=== PATIENT | male | born 1955 | race Two or more races ===

== ENCOUNTER 2017-09-22 09:16 | Inpatient (IN) | payer SELFPAY ==
--- NOTE | 2017-09-22 09:34 | CPEKG ---
Heart Rate: 57 RR Interval: 1053 P-R Interval: 204 QRSD Interval: 86 QT Interval: 436 QTC Interval: 425 P [place]: -8 QRS [place]: 20 T Wave [place]: 68 EKG Severity - ABNORMAL ECG - EKG Impression: SINUS RHYTHM EKG Impression: ABNRM R PROG, CONSIDER ASMI OR LEAD PLACEMENT Electronically Signed By: Obi Grant 22-Sep-2017 09:42:00
--- NOTE | 2017-09-22 09:41 | EDPHY ---
H & P Stated Complaint: Chest pain Time Seen by Provider: 09/22/17 09:25 HPI/ROS: CHIEF COMPLAINT: Chest pain HISTORY OF PRESENT ILLNESS: The patient presents the ED with intermittent nonexertional chest pain over the past 2 days. The patient does have a history of reported peripheral vascular disease. The patient also has a history of aortic valve replacement. The patient is on Plavix. He denies any pleuritic chest pain currently. He denies asymmetric calf pain or swelling. The patient denies history of coronary artery disease. He believes he had an unremarkable stress test performed within the past year. Patient denies any fever, cough or congestion. The patient denies any additional acute complaints. REVIEW OF SYSTEMS: A comprehensive 10 point review of systems is otherwise negative aside from elements mentioned in the history of present illness. Source: Patient Exam Limitations: No limitations - Personal History Current Tetanus/Diphtheria Vaccine: Unsure Current Tetanus Diphtheria and Acellular Pertussis (TDAP): Unsure - Medical/Surgical History Hx Asthma: No Hx Chronic Respiratory Disease: No Hx Diabetes: Yes Hx Cardiac Disease: Yes Hx Renal Disease: No Hx Cirrhosis: No Hx Alcoholism: No Hx HIV/AIDS: No Hx Splenectomy or Spleen Trauma: No Other PMH: AVR, HTN, DM - Social History Smoking Status: Former smoker - Physical Exam Exam: General Appearance: Alert, no distress Eyes: Pupils equal and round no pallor or injection ENT, Mouth: Mucous membranes moist Respiratory: There are no retractions, lungs are clear to auscultation Cardiovascular: Regular rate and rhythm Gastrointestinal: Abdomen is soft and nontender, no masses, bowel sounds normal Neurological: 5/5 strength all 4 extremities Skin: Warm and dry, no rashes Musculoskeletal: Neck is supple nontender Extremities: symmetrical, full range of motion Constitutional: Initial Vital Signs Temperature (C) 36.4 C 09/22/17 09:21 Heart Rate 60 09/22/17 09:21 Respiratory Rate 16 09/22/17 09:21 Blood Pressure 152/92 H 09/22/17 09:21 O2 Sat (%) 95 09/22/17 09:21 O2 Delivery Mode Room Air Allergies/Adverse Reactions: No Known Allergies Allergy (Unverified 09/22/17 09:20) Home Medications: Medication Instructions Recorded Amlodipine Besylate 09/22/17 Jardiance 09/22/17 Lisinopril-Hctz 10-12.5 mg Tab 09/22/17 Metformin HCl 09/22/17 Plavix 09/22/17 Tamsulosin HCl 09/22/17 Medical Decision Making - Diagnostics EKG Interpretation: EKG: Complete interpretation has been separately recorded in the [facility] archive. Summary impression: Sinus rhythm, rate 57, no ST segment elevation or depression noted Imaging Results: Imaging Impressions Chest X-Ray 09/22/17 09:39 Impression: Nothing acute identified. ED Course/Re-evaluation: The patient presents to the ED for evaluation of chest pain which has been present for the past several days. It is nonexertional. The patient has no prior history of coronary artery disease but does have an aortic valve replacement. Patient does have peripheral vascular disease and takes Plavix. He does experience intermittent claudication. The patient's initial workup demonstrated a normal troponin and nonischemic EKG. The patient did undergo an attempted treadmill stress test however was stopped secondary to leg pain. The patient was seen by Cardiology. He is currently undergoing a Lexiscan for further evaluation of his chest pain. Patient's Lexiscan demonstrates indeterminate uptake. Cardiology recommends admission to the hospital for resting image to be obtained in the morning. Consultation is made with Dr. Ricks from the hospitalist service who will admit the patient. Differential Diagnosis: Differential diagnosis considered includes acute coronary syndrome, pericarditis , herpes zoster, myocardial infarction - Data Points Laboratory Results: Laboratory Results 09/22/17 09:40 09/22/17 09:40 09/22/17 09/22/17 09/22/17 09:45 09:40 09:40 WBC 5.72 10^3/uL 10^3/uL (3.80-9.50) RBC 5.30 10^6/uL 10^6/uL (4.40-6.38) Hgb 15.5 g/dL g/dL (13.7-17.5) Hct 47.2 % % (40.0-51.0) MCV 89.1 fL fL (81.5-99.8) MCH 29.2 pg pg (27.9-34.1) MCHC 32.8 g/dL g/dL (32.4-36.7) RDW 13.6 % % (11.5-15.2) Plt Count 210 10^3/uL 10^3/uL (150-400) MPV 9.2 fL fL (8.7-11.7) Neut % (Auto) 47.5 % % (39.3-74.2) Lymph % (Auto) 37.2 % % (15.0-45.0) [place] % (Auto) 12.2 % % (4.5-13.0) Eos % (Auto) 2.4 % % (0.6-7.6) Baso % (Auto) 0.5 % % (0.3-1.7) Nucleat RBC Rel Count 0.0 % % (0.0-0.2) Absolute Neuts (auto) 2.71 10^3/uL 10^3/uL (1.70-6.50) Absolute Lymphs (auto) 2.13 10^3/uL 10^3/uL (1.00-3.00) Absolute Monos (auto) 0.70 10^3/uL 10^3/uL (0.30-0.80) Absolute Eos (auto) 0.14 10^3/uL 10^3/uL (0.03-0.40) Absolute Basos (auto) 0.03 10^3/uL 10^3/uL (0.02-0.10) Absolute Nucleated RBC 0.00 10^3/uL 10^3/uL (0-0.01) Immature Gran % 0.2 % % (0.0-1.1) Immature Gran # 0.01 10^3/uL 10^3/uL (0.00-0.10) Sodium 138 mEq/L mEq/L (135-145) Potassium 4.0 mEq/L mEq/L (3.3-5.0) Chloride 106 mEq/L mEq/L (97-110) Carbon Dioxide 25 mEq/l mEq/l (22-31) Anion Gap 7 mEq/L L mEq/L (8-16) BUN 13 mg/dL mg/dL (7-23) Creatinine 0.8 mg/dL mg/dL (0.7-1.3) Estimated GFR > 60 Glucose 78 mg/dL mg/dL (70-100) Calcium 9.1 mg/dL mg/dL (8.5-10.4) POC Troponin I 0.01 ng/mL ng/mL (0.00-0.08) NT-Pro-B Natriuret Pep 58 pg/mL pg/mL (0-125) Point of Care Test Results: Chemistry 09/22/17 09:45 POC Troponin I 0.01 ng/mL ng/mL (0.00-0.08) Departure - Departure Disposition: [facility] Inpatient Acute Clinical Impression: Chest pain Condition: Good Referrals: MARK GUEVARA [Other] - As per Instructions
[2017-09-22 09:51] LABS: PLATELET COUNT 210 10^3/uL (150-400)
[2017-09-22] MEDS ORDERED: REGADENOSON 0.4 MG/5 ML SYR IVP ONE (11:31)
--- NOTE | 2017-09-22 11:59 | CPIP ---
[f rep st] INVASIVE CARDIAC PROCEDURE PROCEDURE: Exercise stress test. INDICATION: Chest pain. DESCRIPTION: The patient was on the Dion protocol for an exercise tolerance test. At 3 minutes and 20 seconds, he jumped off the belt and stopped exercising. He said he felt short of breath, and he had some cramping in his legs. He had no chest pain, jaw pain, arm pain, chest tightness. He was getting significantly short of breath throughout the 1st stage of the Dion protocol. He did not reach 85% of maximum predicted heart rate. His baseline EKG had nonspecific ST-T changes and had no diagnostic changes with exercise. He had no atrial or ventricular arrhythmias with exercise or p ostexercise. CONCLUSIONS: 1. This is a negative exercise tolerance test for EKG or clinical evidence of ischemia at a very poo r workload. 2. The test is inconclusive, as the patient failed to reach 85% of maximum predicted heart rate. 3. It was a very short duration of exercise, which also contributes to it being inconclusive. 4. Lexiscan for a pharmacologic nuclear stress test has been ordered. COMPLICATIONS: None. Results discussed with the emergency room physician. /[id number]/MODL
--- NOTE | 2017-09-22 12:05 | CPIP ---
[f rep st] INVASIVE CARDIAC PROCEDURE INDICATION: The patient has been a patient in our emergency room being evaluated for chest pain synd [place]. He has multiple significant risk factors for coronary artery disease. Earlier, we did a regul ar exercise tolerance test with a Dion protocol, and that was inconclusive because of failure to zenon ch 85% of maximum predicted heart rate, and further because of very short exercise tolerance. We therefore elected to do a pharmacologic nuclear study, and the patient agreed to this. The patient had a pharmacologic nuclear stress test, and he received the medications and isotope with out any complications. He had no chest pain, jaw pain. He did not feel lightheaded, dizzy. His baseline EKG was abnormal with nonspecific ST-T changes, and he had no diagnostic EKG changes wit h the Lexiscan. He had no arrhythmias with this study. The patient is going down now for stress imaging. CONCLUSION: 1. Negative pharmacologic nuclear study for EKG changes or arrhythmias with the injection of the med ication. 2. Stress images are pending. 3. Nuclear Medicine says that they are not able to do his resting images today, and I have discussed with the patient what that means. If he has an abnormal stress imaging study or if Radiology believ es he should have a resting image, I have told him that he will need to wait in the hospital overnigh t to get those images obtained. I have also explained to him that he does have a right to sign out a gainst medical advice, and then we would try to arrange for him to get the resting images tomorrow; h owever, that can be complicated because by then, he is an outpatient. We will cross that bridge when we come to it. Also, I have told him that he needs to pay attention to his pain and his clinical sy ndrome because even if our test is normal and the emergency room discharges him, if he continues to h ave significant discomfort; persistent discomfort; new discomfort; or associated symptoms, such as sh ortness of breath, fatigue, hemoptysis; he needs to return to any emergency room for further evaluati on, and not just assume that his clinical situation has resolved. He understands all of this, and his questions have been answered. There were no complications. He is now heading down to Nuclear Imaging. /[id number]/MODL
--- NOTE | 2017-09-22 13:39 | ASMTLACE ---
LACE Length of stay for Answers: Less than 1 day current admission Acuity / Level of Answers: No Care: Did the patient have an inpatient admission? # of Emergency department Answers: 1-2 visits in the last 6 months Score: 1 Date Signed: 09/22/2017 01:38 PM Electronically Signed By:Austin Dickerson LCSW
[2017-09-22] MEDS ORDERED: ACETAMINOPHEN 325 MG TAB PO PRN (16:08)
[2017-09-22] MEDS ORDERED: D50W 25 GM/50 ML SYR IVP PRN (16:14)
--- NOTE | 2017-09-22 16:37 | GHP ---
[f rep st] HISTORY AND PHYSICAL DATE OF ADMISSION: 09/22/2017 CHIEF COMPLAINT: Chest pain. HISTORY OF PRESENT ILLNESS: This is a 62-year-old man presenting from [place] who presents with chest pain. It started yesterday. Described as a tightness, intermittent, not associated with exerc ise, not really relieved by anything. He has done nothing for it. He has a history of peripheral va scular disease, as well as an aortic valve replacement, but no known coronary artery disease. He pre sented to the emergency department this morning. Attempt was made at a treadmill stress test; melissa rivero, he failed that due to only being able to go for 3 minutes due to claudication. He had a Lexiscan that ordered. Stress images were indeterminate. He is thus admitted for his resting images. PAST MEDICAL/SURGICAL HISTORY: 1. Peripheral vascular disease. Has not received any stents. 2. 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 During anatoly t, he had 2 CVAs. 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 3. Diabetes mellitus. 4. Hypertension. 5. BPH. MEDICATIONS: Please see medication reconciliation. ALLERGIES: No known drug allergies. FAMILY HISTORY: Reviewed, noncontributory. SOCIAL HISTORY: He is currently visiting from [place]. He occasionally smokes a cigar. He does not smoke cigarettes and does not drink. REVIEW OF SYSTEMS: A 10-point review of systems is conducted and is negative, except per HPI. PHYSICAL EXAMINATION: VITAL SIGNS: Blood pressure 158/105, heart rate 57, respiration rate 18, satu rating at 99% on room air, temperature is 36.7. GENERAL: The patient is a pleasant man who is sitti ng comfortably in no acute distress. HEENT: Normocephalic, atraumatic. CARDIOVASCULAR: Regular ra te and rhythm. He has a 2/6 systolic murmur, crescendo-decrescendo heard best at the right upper mary rnal border. PULMONARY: Lungs clear to auscultation bilaterally. ABDOMEN: Obese, but otherwise so ft, nontender, nondistended. SKIN: No rash. : No Doyle. NEUROLOGIC: Alert and oriented x3. H e is moving all extremities. PSYCHIATRIC: Normal mood and affect. LABORATORY DATA: CBC is normal. Basic metabolic panel is normal. Troponin 0.01. BNP is 58. DATA: 1. Discussed this with Dr. Grant. Will admit to med/surg. 2. I personally viewed and interpreted his ECG. This shows sinus rhythm. He has slow R-wave progre ssion. 3. I personally viewed and interpreted his chest x-ray. This shows normal-sized heart. He has ster notomy wires. There is nothing acute. IMPRESSION/PLAN: 1. Chest pain: His HEART score is 4 for age, moderately suspicious history, and multiple risk facto rs. He failed an exercise stress test due to claudication. He had indeterminate stress images, thus he is admitted for resting images. These will be performed tomorrow. Further workup pending these results. 2. Peripheral vascular disease: He is currently on an aspirin. He is not taking a statin medicatio n. Would defer that to his primary care doctor. 3. 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 He is on P lavix. 4. Cerebrovascular accident x2. He is on Plavix as above. It sounds as though this was embolic in the setting of his endocarditis. 5. Diabetes mellitus: We will hold his oral medications. We will follow his blood sugars and put h im on a low-dose sliding scale insulin. 6. Hypertension: Continue his antihypertensives. 7. BPH: Flomax. Copy requested to: Dr. Mukul Bernabe Office #[phone] /[id number]/MODL
[2017-09-22] MEDS: INSULIN LISPRO 100 UNIT/ML SC SCH (17:55)
[2017-09-22] MEDS: TAMSULOSIN HCL 0.4 MG CAP PO SCH (19:51)
[2017-09-22] MEDS: Empagliflozin [Jardiance] 10 MG PO SCH (20:14)
[2017-09-23] MEDS: INSULIN LISPRO 100 UNIT/ML SC SCH ×3 (08:11→17:44)
[2017-09-23] MEDS: LISINOPRIL/HCTZ 20/12.5MG 1 EA TAB PO SCH (08:18)
[2017-09-23] MEDS: amLODIPine BESYLATE 5 MG TAB PO SCH (08:18)
[2017-09-23] MEDS: CLOPIDOGREL BISULFATE 75 MG TAB PO SCH (08:18)
[2017-09-23] MEDS ORDERED: ASPIRIN 325 MG TAB PO SCH (15:45)
--- NOTE | 2017-09-23 15:46 | ASMTCASEMG ---
Living Arrangements What is your living Answers: Alone arrangement? Who do you live with? Type Of Residence What kind of residence do Answers: House you live in? Discharge Plan Comments Coordination Status Comments Notes: Pts case discussed in tx rounds. Pt is a 62 y/o man admitted for chest pain. Med Data met w/ pt. It was revealed that pt is from [place]. Financial counseling met w/ pt. Pt should not have any d/c needs. No therapies ordered at this time. CM available for changes. Plan: Independent Date Signed: 09/23/2017 03:46 PM Electronically Signed By:SRINIVAS Jean
--- NOTE | 2017-09-23 15:52 | HOSPPROG ---
Hospitalist Progress Note Assessment/Plan: Chest pain - resting images on stress test today show areas of ischemia. Will start ASA, statin, NPO at midnight for cath tomorrow. Defer BB with HR in the 50's. Discussed with cards. PVD - he had claudication symptoms on treadmill, which was aborted. He has b/l distal extremity pulses which are warm and well perfused. He will f/u with vascular surgeon in [place] for stent, which has previously been recommended. Cont Plavix. AVR - porcine valve H/O CVA - cont plavix DM type 2 - bg's adequately controlled, cont Jardiance, SSI Hypertension - cont amlodipine, lisinopril/hctz Full code Dispo - inpt for ongoing ischemic eval and cath in am Subjective: Pt feels better, wants to go home. Denies CP or SOB at this time. Eating well. Objective: Vital Signs Temp Pulse Resp BP Pulse Ox 36.8 C 58 L 16 130/82 H 98 09/23/17 11:28 09/23/17 11:28 09/23/17 11:28 09/23/17 11:28 09/23/17 11:28 09/22/17 09/23/17 09/24/17 05:59 05:59 05:59 Intake Total 500 980 Balance 500 980 - Physical Exam Constitutional: no apparent distress Eyes: PERRL Ears, Nose, Mouth, Throat: moist mucous membranes Cardiovascular: regular rate and rhythym Respiratory: no respiratory distress, clear to auscultation Gastrointestinal: normoactive bowel sounds, soft, non-tender abdomen Skin: warm Musculoskeletal: full muscle strength Neurologic: AAOx3 Psychiatric: interacting appropriately ICD10 Worksheet Patient Problems: Problems Problem Status Onset Chest pain Acute
[2017-09-23] MEDS ORDERED: NITROGLYCERIN 0.4 MG BTL SL PRN (15:56)
[2017-09-23] MEDS ORDERED: ACETAMINOPHEN 325 MG TAB PO PRN (15:56)
[2017-09-23] MEDS ORDERED: TEMAZEPAM 15 MG CAP PO PRN (15:56)
--- NOTE | 2017-09-23 17:20 | GCON ---
[f rep st] CONSULTATION CARDIOLOGY CONSULT HISTORY OF PRESENT ILLNESS: The patient is a 62[place] [facility]. He is here visiting his sister. He drove to town, and he has been here for a while, and he lately h as developed some shortness of breath. His shortness of breath on his own, and when I talked to him, he says he does not have chest pain or chest tightness, but it is shortness of breath. Earlier, he told one of the hospitalists it might be some chest tightness. He had his aortic valve replaced done with a tissue valve in 2007, and that has been going very well, and he has had no problems with that. He has peripheral vascular disease and is on Plavix for that. He gets some claudication when he walk s along, and that is actually improving. We did a regular stress test on him, and in 3 minutes, he w as too short of breath to continue, so he got off the treadmill. He did not reach 85% of maximum pre dicted heart rate, so we did a pharmacologic stress, and on that study, he now has anterior and infer ior possible ischemic zones with normal EF. He does not have pleuritic chest pain. He told me he did not have chest pain. He does not have jaw or arm pain. He does not have back pain. He has not had fever, chills, or cough. He has not had anything to suggest deep venous thrombosis. He has no history of DVT or pulmonary embolic disease. He does not have nausea/vomiting. He does not have a history of asthma. CARDIAC RISK FACTORS: Positive for diabetes mellitus, hypertension, obesity. He has peripheral vasc ular disease in the form of claudication. He says this is quite well maintained and not a problem currently. He does not have a history of smoking, of known coronary artery disease, and he says his cholesterol is normal. When I talked to him about cerebrovascular disease, it sounds like he may have had 2 episodes consist ent with small strokes that have resolved. He does not have a history of atrial fibrillation. Cardiovascular history includes an aortic valve replacement. It is the aortic valve; it was replaced with a tissue valve. He had a history of endocarditis, had a tooth infection, which led to problems , and that was at the time when he may have had the stroke symptoms. Cardiac risk factors are negative for smoking, hyperuricemia, or family history of premature coronary artery disease as well. ALLERGIES: None. SOCIAL HISTORY: He is here from [facility] visiting his sister. He works as a spray ii painter. Jeison [place] enjoys a cigar once in a while, but not too often. Does not smoke tobacco in the form of cigarette s. Does not drink alcohol. He does not exercise very much. REVIEW OF SYSTEMS: Ten-point review of systems negative, except as noted. He does have BPH. PHYSICAL EXAMINATION: VITAL SIGNS: His blood pressure is 140/88. Respiratory rate is 10. His hear t rate is 70. He is sitting comfortably in a hospital chair. HEENT: Pupils equal and reactive. Mu cous membranes of mouth moist. NECK: Supple. CARDIOVASCULAR: S1, S2, distant heart sounds. A sof t systolic ejection murmur 2nd right intercostal space. There is no delayed carotid upstroke. ABDOM EN: Soft, nontender, without masses. PULMONARY: Exam reveals rhonchi. No rales, wheezing, or dull ness. EXTREMITIES: No edema, inflammation or ulceration. NEURO: Cranial nerves 2-12 appear to be grossly normal. Motor and sensory intact. PSYCH: No obvious anxiety or depression. SKIN: Age-rel ated changes only. LABORATORY DATA: His nuclear stress test is positive for possible inferior and anterior ischemia. His EKG shows sinus rhythm, poor R-wave progression, nonspecific ST-T changes. Chest x-ray shows his sternotomy. His laboratory shows a white count of 5.72, hematocrit of 47, and platelets 210. Chemistry: His cho lesterol is 164. His LDL is 97. His HDL is 42. His glucose is elevated at 178 range. Sodium 138, potassium 4.0, chloride 106, CO2 25, BUN 13, creatinine 0.8, glucose 78. BNP 58. ASSESSMENT AND PLAN: 1. Prosthetic aortic valve. a. The patient has a bioprosthetic aortic valve. He had a history of endocarditis. He had symptoms that were consistent with a stroke at the time of the endocarditis. He has done very well with that valve, and he follows closely with his aircraft instrument tester in [place], [place]. 2. Shortness of breath. 3. Abnormal nuclear stress test. a. The patient has had shortness of breath that has come on since he has been here. There is nothin g to suggest pulmonary embolic disease. He is very careful when he does his walking and has no probl ems with walking. b. However, he does have an abnormal nuclear study. He could have significant coronary artery disea se given his very significant risk factors. c. So, I have recommended he undergo coronary angiography. d. My gracious partner, Dr. Kennedy Zavaleta, has agreed to do him through the wrist. Given the patie nt's very large abdomen and groin area, I think it will be much better for him to be done peripherall y, assuming that goes well. e. The patient does have peripheral vascular disease, so the whole thing may be a challenge. f. I have talked to the patient extensively and then to his sister about the risks and the options, and I think it is not safe for him to drive all the way to [place] until we resolve at least the degree of coronary artery disease that is present. g. At this point in time, he is not sure he wants to do it, but his sister is quite sure he will do it and will see what he decides to do in the morning. h. In the meantime, he is set up to have it done tomorrow. i. He is not having any acute coronary syndrome right now. He is currently stable. There has not b een a D-dimer done and will get one of those ordered now. 4. Obesity. a. It would be really good if he can begin an exercise program and drop some of this weight, and I h ave great ty that he can do that. 5. Diabetes mellitus. His blood sugars are not well controlled. This will be evaluated by the team caring for him. 6. Right now, in terms of his shortness of breath, I think if there is nothing to suggest pneumonia or an infectious etiology, I do not think he has anything to go along with pulmonary embolic disease, and we will make sure that the degree of coronary disease that he does have and take care of that be fore he heads back to [place]. a. The shortness of breath and coronary disease may be unrelated. I answered all his questions. I answered all his sister's questions. I talked to the hospitalist about this tonight. /[id number]/MODL
--- NOTE | 2017-09-23 17:39 | PDMN ---
Medical Necessity Medical necessity: Pt meets inpt criteria peer MD order and MCG M-40, Angina, A- 1 days. Pt admitted w/ cp, failed treadmill stress test sec to claudication, resting images on stress test show areas of ischemia, heart cath tomorrow, EKG: BB w/HR in 50's, comorbid conditions including diabetes, HTN, PVD, Hx of CVA, AVR. Anticipate >2MN for further monitoring and eval of ischemia. Status change 09/23/17 @ 17:12.
[2017-09-23] MEDS: ASPIRIN EC 81 MG TAB PO SCH (17:45)
[2017-09-23] MEDS: ATORVASTATIN CALCIUM 40 MG TAB PO SCH (17:46)
[2017-09-23] MEDS: TAMSULOSIN HCL 0.4 MG CAP PO SCH (20:53)
[2017-09-23] MEDS: Empagliflozin [Jardiance] 10 MG PO SCH (20:53)
[2017-09-24 04:25] LABS: PLATELET COUNT 211 10^3/uL (150-400)
[2017-09-24 04:32] LABS: INR 1.06 (0.83-1.16)
[2017-09-24] MEDS ORDERED: ASPIRIN EC 325 MG TAB PO ONE ×2 (06:00→12:19)
[2017-09-24] MEDS ORDERED: diphenhydrAMINE 25 MG CAP PO ONE ×2 (06:00→12:18)
[2017-09-24] MEDS ORDERED: FAMOTIDINE 20 MG TAB PO ONE (06:00)
[2017-09-24] MEDS ORDERED: NS 1,000 ML IV ONE (06:00)
[2017-09-24] MEDS ORDERED: DIAZEPAM 5 MG TAB PO ONE (06:00)
--- NOTE | 2017-09-24 08:34 | CPEKG ---
Heart Rate: 58 RR Interval: 1034 P-R Interval: 200 QRSD Interval: 84 QT Interval: 440 QTC Interval: 433 P Orange: 10 QRS Orange: 48 T Wave Orange: 84 EKG Severity - ABNORMAL ECG - EKG Impression: SINUS RHYTHM EKG Impression: CONSIDER ANTEROSEPTAL INFARCT Electronically Signed By: Larry Greene 24-Sep-2017 13:23:45
[2017-09-24] MEDS: ATORVASTATIN CALCIUM 40 MG TAB PO SCH (10:51)
[2017-09-24] MEDS: LISINOPRIL/HCTZ 20/12.5MG 1 EA TAB PO SCH (10:51)
[2017-09-24] MEDS: CLOPIDOGREL BISULFATE 75 MG TAB PO SCH (10:52)
[2017-09-24] MEDS: amLODIPine BESYLATE 5 MG TAB PO SCH (10:53)
[2017-09-24] MEDS: ASPIRIN EC 81 MG TAB PO SCH (10:53)
[2017-09-24] MEDS: INSULIN LISPRO 100 UNIT/ML SC SCH ×3 (10:54→18:17)
[2017-09-24] MEDS ORDERED: HEPARIN 10,000 UNIT/10 ML MDV (1,000 UNIT/ML) ONE (11:50)
[2017-09-24] MEDS ORDERED: LIDOCAINE 1% 300 MG/30 ML SDV ONE (11:50)
[2017-09-24] MEDS ORDERED: fentaNYL 100 MCG/2 ML INJ ONE (11:50)
[2017-09-24] MEDS ORDERED: VERAPAMIL 5 MG/2 ML VIAL ONE (11:50)
[2017-09-24] MEDS ORDERED: MIDAZOLAM 2 MG/2 ML VIAL ONE (11:50)
[2017-09-24] MEDS ORDERED: IOPAMIDOL (ISOVUE-370) 150 ML BTL IV ONE (11:51)
[2017-09-24] MEDS ORDERED: FAMOTIDINE 20 MG TAB ONE ×2 (12:19→13:01)
[2017-09-24] MEDS ORDERED: DIAZEPAM 5 MG TAB ONE (12:20)
--- NOTE | 2017-09-24 13:03 | PDHPUP ---
History & Physical Update H&P update statement: This history and physical update is based on an assessment of the patient which was completed after admission or registration (within 24 hours), but prior to the surgery/procedure. H&P update: H&P reviewed & patient examined, no change in patient's condition since H&P completed
--- NOTE | 2017-09-24 13:07 | PDPROPOC ---
Sedation Plan of Care Sedation Plan of Care: vital signs stable, mental status noted, patient educated of risks, benefits, alternatives, patient can tolerate sedation ASA Classification: ASA 3 Planned drugs: fentanyl, midazolam Mallampati Score: Class 1 Mallampati Reference Image: Patient passed 3-3-2 rule?: Yes
[2017-09-24] MEDS ORDERED: ONDANSETRON 4 MG/2 ML VIAL IVP PRN (14:06)
[2017-09-24] MEDS ORDERED: ATROPINE SULFATE 1 MG/10 ML SYR IVP PRN (14:06)
[2017-09-24] MEDS ORDERED: HYDROCODONE/APAP 5/325 TAB PO PRN (14:06)
--- NOTE | 2017-09-24 14:11 | PDDXCAT ---
Diagnostic Cath Note - . Date: 09/24/17 [employer]: Waqar Indication: other (BURGER, risk factors for CAD, and abnormal nuclear stress test.) - Procedure Access: right wrist Procedure: left heart catheterization, coronary angiography, left ventriculogram - Materials Left Heart Cath size: 5F Left Heart Cath materials: pigtail, other ([employer]) - Findings-Left Heart Catheterization LM: Angiographically normal. LAD: Angiographically normal. LCX: Angiographically normal. RCA: Angiographically normal. EDP: 18 mmHg LVEF: 60% Wall motion: Normal. Complications: None Estimated blood loss: <50ml Closure method: TR Band Assessment: 1) Normal LV systolic function. 2) Angiographically normal coronary arteries. Patient Problems: Problems Problem Status Onset Chest pain Acute
[2017-09-24 17:56] VITALS: BP 132/82
--- NOTE | 2017-10-06 09:55 | GDS ---
[f rep st] DISCHARGE SUMMARY DISCHARGE DIAGNOSES: 1. Chest pain, resolved. 2. Peripheral vascular disease. 3. History of aortic valve replacement. 4. History of cerebrovascular accident. 5. Diabetes mellitus type 2. 6. Hypertension. CONSULTANTS: Dr. Diego Farah, cardiology. PROCEDURES: 1. Nuclear medicine myocardial perfusion scan showed ejection fraction 52% with possible anterior an d inferolateral basilar ischemia. 2. Left heart catheterization with coronary angiography September 24, 2017, performed by Dr. Zavaleta shante wed normal left ventricular systolic function and angiographically normal coronary arteries. HISTORY: For details please see history and physical dated September 22, 2017. In brief, the patient is a 62-year-old male with a history of diabetes, hypertension, and symptomatic peripheral vascular dise ase, who is visiting from [place] and presented to the emergency department with chest pain. He is admitted to the hospital for further management. HOSPITAL COURSE: The patient admitted to cardiac telemetry unit. His HeartScore was 4. He had no e vidence of acute ischemia on his initial EKG, though slow R-wave progression was noted. He underwent nuclear medicine stress testing which was suspicious for ischemia. He remained hospitalized and und erwent left heart catheterization which showed normal coronary arteries. He was continued on aspirin for his peripheral vascular disease. He tells me he has been offered vascular stenting and plans to follow up with vascular surgeon upon return to [place]. He is continued on his Plavix. DISPOSITION: Patient is discharged home in stable condition. FOLLOWUP: 1. Dr. Gilman , primary care. 2. Vascular surgery upon return to [place]. DISCHARGE MEDICATIONS: Please see [facility] completed outpatient medication list. New medications on discharge include Lipitor 40 mg p.o. daily #30 no refills. He will continue all o ther outpatient medications as previously prescribed. In addition, he is advised to hold metformin f or 72 hours post heart catheterization. /[id number]/MODL
== END 2017-09-24 18:29 | disposition home or self-care (01) | DRG 287 ==
LOC: F2W 15:30 → OBSVTOIN 09-23 17:12
PROVIDERS: ADMIT Student in an Organized Health Care Education/Training Program; ATTEND Student in an Organized Health Care Education/Training Program
PROC: B2111ZZ Fluoroscopy of Multiple Coronary Arteries using Low Osmolar Contrast (ICD-10-PCS; principal; 2017-09-24)
PROC: 4A023N7 Measurement of Cardiac Sampling and Pressure, Left Heart, Percutaneous Approach (ICD-10-PCS; principal; 2017-09-24)
PROC: B2151ZZ Fluoroscopy of Left Heart using Low Osmolar Contrast (ICD-10-PCS; principal; 2017-09-24)
DX: R07.89 Other chest pain (principal); I10 Essential (primary) hypertension; E11.51 Type 2 diabetes mellitus with diabetic peripheral angiopathy without gangrene; Z87.891 Personal history of nicotine dependence; Z95.3 Presence of xenogenic heart valve; N40.0 Benign prostatic hyperplasia without lower urinary tract symptoms; E66.9 Obesity, unspecified
CPT/HCPCS: 84484-PO; A9500; C1769; G0378; J1644; J2250; J2785; J3010; Q9967